=== PATIENT | female | born 1945 | race African-American/Black ===

== ENCOUNTER 2022-02-19 09:30 | Emergency (ER) | payer MEDICARE, BC ==
[~2022-02-19] VITALS: Ht 170.2 cm; Wt 64.0 kg
[2022-02-19 09:35] VITALS: BP 143/98
[2022-02-19] MEDS ORDERED: LIDOCAINE HCL 1% 20ML VIAL (Pyxis) INJ INFIL ONE (10:45)
== END 2022-02-19 14:24 | disposition home or self-care (01) ==
LOC: ER 09:52
DX: S01.81XA Laceration without foreign body of other part of head, initial encounter (principal); W18.30XA Fall on same level, unspecified, initial encounter; Y93.89 Activity, other specified; Y92.89 Other specified places as the place of occurrence of the external cause; Y99.8 Other external cause status
CPT/HCPCS: 12002; 12011; 73030; 73130; 73502; 73552; 73562; 99284